=== PATIENT | female | born 1990 | race Caucasian/White ===

== ENCOUNTER 2017-06-14 14:59 | Emergency (ER) | payer MEDICAID | END 2017-06-14 19:56 | disposition home or self-care (01) | LOC: FTE 14:59 | DX: S53.402A Unspecified sprain of left elbow, initial encounter (principal); X58.XXXA Exposure to other specified factors, initial encounter; Y92.9 Unspecified place or not applicable | CPT/HCPCS: 73080; 73080-LT; 99283-25 ==

== ENCOUNTER 2018-08-08 22:49 | Emergency (ER) | payer MEDICAID ==
[2018-08-09] MEDS: IBUPROFEN 600 MG TAB PO (03:22)
== END 2018-08-09 06:03 | disposition home or self-care (01) ==
LOC: FTE 22:49
DX: S49.91XA Unspecified injury of right shoulder and upper arm, initial encounter (principal); W18.2XXA Fall in (into) shower or empty bathtub, initial encounter; Y92.9 Unspecified place or not applicable
CPT/HCPCS: 73030; 73030-RT; 99283-25